=== PATIENT | male | born 1960 | race Caucasian/White ===

== ENCOUNTER → 2016-11-21 | Outpatient (CLI) | payer BC ==
[2016-11-21 12:12] LABS: Anisocytosis Slight; Basophils % (A) 1 %; CH 22.2; CHCM 28.6; Eosinophils % (A) 1 %; HCT 29.2 % (39.0-53.0); HDW 3.37; HGB 8.3 gm/dL (13.0-17.5); Hypochromasia Marked; Luc # (Auto) 0.19; Luc % (Auto) 4; Lymphocytes # (A) 1.4 k/uL (1.0-4.8); Lymphocytes % (A) 29 %; MCHC 28.3 g/dL (31.0-37.0); Mean Platelet Volume 6.2; Microcytosis Slight; Monocytes # (A) 0.4 k/uL (0-1.0); Monocytes % (A) 7 %; Neutrophils # (A) 2.8 k/uL (1.3-7.7); Neutrophils % (A) 58 %; RBC 3.75 m/uL (4.30-5.90); RDW 16.5 % (11.5-15.5); WBC 4.8 k/uL (3.8-10.6); WBC (Perox) 5.13
[2016-11-21 12:27] LABS: ALT 32 U/L (21-72); AST 28 U/L (17-59); Alkaline Phosphatase 69 U/L (38-126); Anion Gap 9 mmol/L; Blood Urea Nitrogen 7 mg/dL (9-20); Calcium 9.4 mg/dL (8.4-10.2); Carbon Dioxide 26 mmol/L (22-30); Chloride 106 mmol/L (98-107); Cholesterol 122 mg/dL (<200); Glucose 93 mg/dL (74-99); HDL Cholesterol 52 mg/dL (40-60); Non-African American GFR(MDRD) >60 (>60 ml/min/1.73 sqM); Potassium 4.3 mmol/L (3.5-5.1); Sodium 141 mmol/L (137-145); Total Bilirubin 0.5 mg/dL (0.2-1.3); Total Protein 7.2 g/dL (6.3-8.2); Triglycerides 82 mg/dL (<150)
[2016-11-21 13:06] LABS: Vitamin B12 819 pg/mL (239-931)
== END | disposition home or self-care (01) ==
LOC: LABWHC1 11:10
PROVIDERS: ATTEND Internal Medicine
DX: Z00.00 Encounter for general adult medical examination without abnormal findings (principal); Z12.5 Encounter for screening for malignant neoplasm of prostate
CPT/HCPCS: 80061; 80053; 84443; 82607; 85025; 82306; 36415; G0103

== ENCOUNTER → 2017-03-07 | Outpatient (CLI) | payer BC ==
--- NOTE | 2017-03-07 11:12 | MR ---
EXAMINATION TYPE: MR lumbar spine wo/w con DATE OF EXAM: 03/07/2017 COMPARISON: NONE HISTORY: 56-year-old male back pain, Lumbago. Flatback syndrome. Surgery 10 years ago. Technique: Multiplanar, multisequence images of the lumbar spine were obtained before and after admin istration of 20 mL intravenous MultiHance gadolinium contrast. FINDINGS: There is loss of the normal lumbar lordosis compatible with the provided history of flat back syndrom e. There is no vertebral compression collapse or lumbar ankylosis. There are postsurgical changes at L5-S1 with right-sided transpedicular screw fixation as well as int erbody fusion. There is a large left-sided laminotomy defect. Vertebral body heights are preserved. Alignment is grossly maintained. There may be minimal grade 1 a nterolisthesis at L5-S1. No suspicious bone marrow replacement. Conus medullaris is normal. From T12 through L3 levels, no spinal canal or neuroforaminal stenosis. At L3-L4, there is mild facet degenerative change with minimal disc bulge causing minimal bilateral i nferior neuroforaminal narrowing. No spinal canal stenosis. At L4-L5, there is mild diffuse disc bulge and facet degenerative change, particularly on the right. This causes mild left greater than right neuroforaminal stenosis. A tiny enhancing left paracentral a nnular fissure is present which closely approaches the traversing left L5 nerve root, sagittal image 4. No spinal canal stenosis. At L5-S1, diffuse level, there is low T1 signal within the surgerized left neuroforamen that shows po stcontrast enhancement, sagittal image 2 and axial T1 images 4 and 5. There is additional low T1 sign al extending into the posterior aspect of the right neuroforamen that shows associated postcontrast e nhancement contributing to moderate neural foraminal narrowing. Refer to T1 sagittal images 10 and 11 . No spinal canal stenosis. No prevertebral or paravertebral soft tissue abnormality seen. IMPRESSION: 1. Large left-sided laminotomy defect at L5-S1. Prior unilateral right posterior L5-S1 fusion as well as interbody fusion. 2. At this level, there is prominent enhancing perineural granulation tissue involving the exiting le ft L5 nerve root. 3. There is also enhancing epidural granulation tissue which extends into the posterior aspect of the right L5-S1 neuroforamen moderately narrowing the right neuroforamen. 4. Very mild diffuse disc bulge at L4-L5 with a tiny left paracentral annular fissure which closely a pproaches the traversing left L5 nerve root. 5. Straightening of the normal lumbar lordosis. No canal compromise.
== END | disposition home or self-care (01) ==
LOC: RADMRIMAIN 09:10
PROVIDERS: ATTEND Psychiatry & Neurology Neurology
DX: M99.73 Connective tissue and disc stenosis of intervertebral foramina of lumbar region (principal); M51.26 Other intervertebral disc displacement, lumbar region; Z98.1 Arthrodesis status
CPT/HCPCS: 72158; A9577

== ENCOUNTER → 2017-04-23 | Outpatient (CLI) | payer BC ==
[2017-04-23 12:05] VITALS: BP 126/86; PULSE 94; RESP 16
--- NOTE | 2017-04-23 12:59 | P.CONS ---
History of Present Illness - Reason for Consult Consult date: 04/23/17 - History of Present Illness This is the initial consultation visit for this 56 years old male, with a chronic history of severe low back pain with radiation to the posterior aspect of his left lower extremity, pain is constant and increases with any activity and he reports he feels some weakness in his left foot, he had the lumbar laminectomy surgery done 10 years ago, which helped him for several years but over the last 3 years he started having severe low back pain and increases in intensity over time, the pain intensity increased with any activity and interfere with his quality of life and his ability to function , he tried Neurontin and Lyrica and he had side effect/diplopia, and he stops using it and he is currently using Celebrex and Flexeril, with minimal benefit, he tried physical therapy without any significant benefit, and he was referred to [facility] for surgical consultation, but he is not interested in having any surgical interventions, he denies any fever or night sweats he denies any change in the bowel movement or urination Past Medical History Additional Past Medical History / Comment(s): Anemia RT gastric ulcer secondary to NSAIDS. History of Any Multi-Drug Resistant Organisms: None Reported Past Surgical History: Back Surgery Additional Past Surgical History / Comment(s): "Lumbar fusion 10 years ago." "Vasectomy 17 years ago." Past Anesthesia/Blood Transfusion Reactions: No Reported Reaction Past Psychological History: No Psychological Hx Reported Smoking Status: Never smoker Past Alcohol Use History: Rare Past Drug Use History: None Reported - Past Family History Father Family Medical History: Diabetes Mellitus Additional Family Medical History / Comment(s): "Father as a result of complications of diabetes." Mother Family Medical History: Diabetes Mellitus Medications and Allergies Home Medications Medication Instructions Recorded Confirmed Type Celecoxib [CeleBREX] 200 mg PO BID 04/23/17 04/23/17 History Cyclobenzaprine [Flexeril] 10 mg PO DAILY PRN 04/23/17 04/23/17 History Ibuprofen [Motrin] 800 mg PO DAILY PRN 04/23/17 04/23/17 History Allergies Allergy/AdvReac Type Severity Reaction Status Date / Time No Known Allergies Allergy Verified 04/23/17 11:51 Physical Exam Vitals: Vital Signs Pulse Resp BP Pulse Ox 04/23/17 11:53 94 16 126/86 96 Social history : not smoker , NO ETOH , NO Illegal drugs use Review of Systems : 1- Constitutional : no chills , no fever , no night sweats , 2- Ears : no ear discharge , no change in hearing 3-Nose, Mouth ,Throat ; no bleeding gums, no sore throat , no epistaxis , 4-Cardiovascular : Denies chest pain, , no orthopnea , no palpitation 5-Respiratory : Denies cough , no dyspnea , no hemoptysis 6-Gastrointestinal :, no change in bowel habits , no coffee- ground emesis . 7-Genitourinary : No hematuria , no discharge , no incontinence, 8-Musculoskeletal : No gait dysfunction , report low back pain , 9- Neurological : no ataxia , no tremor , no sezure , 10-Psychatric , no suicidal ideation no hallucination 11- Endocrine : no cold intolerence , no polyuria , no polydypsia , 12-Hematologic : no easy bleeding , no easy brusing , 13-Allergic / immunology : no angioedema , no wheezing ,no allergic rhinitis 14-Integumentary : no brttle nails , no change hair / nails , no foot/leg ulcers . Physical Examinations : 1-Constitutional : Cooperative , not in acute distress . 2-HEENT : nech ; supple , no Lymphadenopathy , no Thyromegaly , 3-Integumentary : No cellulitis , no ulcers , normal skin turgor , no cyanotic . 4- neurologic : Cranial nerve II to XII intact , no focal neurological deffecit 5-psychatric : alert , oriented X 3 , appropriate affect , intact judgment and insight . 6-Lymphatic : no Lymphadenopathy. 7- musculoskeltal: normal gait Lumber spine moter stegnth lower extremities ,thigh and legs 5/5 Right side , 4/5 Left side deep tendon reflexes : normal Knee Jerk , normal ankle Jerk positive lumber facet Loading Test Range of motion of the lumbar spine Flexion 30 degrees, extension 10 degrees strait leg raising test , positive at 30 degree left side , negative on the right side Fabere test negative RT and positive LT . Results Comments: MRI of the lumbar spine done at [facility] 03/07/2017 showed left-sided laminectomy defect at L5-S1 there is pain free in neurology granulation tissue involving the left L5 nerve root and there is moderate narrowing of the neuroforamina there is mild diffuse disc bulging at L4 5 and there is facet joint degeneration at L3 4 and L4-L5 Assessment and Plan Plan: Assessment and plan= chronic low back pain secondary to , lumbar spondylosis with lumbar facet arthropathy , failed back surgery syndrome lumbar area Patient should continue his current medication Celebrex 200 mg twice a day, Flexeril 10 mg daily at bedtime He could benefit from Cymbalta 30 mg daily and increase gradually to 60 mg daily, patient tried amitriptyline in the past without any benefit, and he tried Lyrica and Neurontin he had side effects, patient could benefit from caudal epidural steroid injections with lysis of epidural adhesions which will be done under fluoroscopy guidance in the next few weeks procedure risk and benefits and alternative discussed with the patient ,and he agreed with the preceding , Time with Patient: Greater than 30
== END | disposition home or self-care (01) ==
LOC: PNWHC3 11:47
PROVIDERS: ATTEND Specialist
DX: M47.816 Spondylosis without myelopathy or radiculopathy, lumbar region (principal); M46.96 Unspecified inflammatory spondylopathy, lumbar region; M96.1 Postlaminectomy syndrome, not elsewhere classified; Z79.1 Long term (current) use of non-steroidal anti-inflammatories (NSAID); Z79.899 Other long term (current) drug therapy
CPT/HCPCS: 99211

== ENCOUNTER 2017-04-30 10:39 | Day surgery (SDC) | payer BC ==
[2017-04-28 15:19] VITALS: BMI 26.5
[~2017-04-30 10:39] MED LIST: LACTATED RINGERS 1,000 ML IV SCH
[2017-04-30 10:54] VITALS: TEMP 98.3
[2017-04-30] MEDS ORDERED: LACTATED RINGERS 1,000 ML IV ONE ×2 (10:56→12:08)
--- NOTE | 2017-04-30 11:59 | P.PCN ---
Date of Procedure: 04/30/17 Procedure(s) Performed: PREOP DIAGNOSIS: 1- Lumbar postlaminectomy syndrome POSTOP DIAGNOSIS:1- Lumbar postlaminectomy syndrome PROCEDURE: Caudal epidural steroid injection with epidurolysis and epidurogram under fluoroscopic guidance ANESTHESIA: Local with 1% lidocaine 3 ml ; IV sedation with Versed 4 mg and fentanyl 100 g EBL: Minimal. PROCEDURE INDICATION: The patient with post-laminectomy syndrome with low back pain and radiculopathy radiating down in both legs, here for a caudal epidural steroid injection with epidurolysis. PROCEDURE DESCRIPTION: The patient was seen and identified in the preoperative area. Risks, benefits, complications, and alternatives were discussed with the patient. The patient agreed to proceed with the procedure and signed the consent. IV was started, and vital signs were stable. Patient was taken to the OR and time out was completed. The patient was placed in the prone position on procedure table and a pillow was placed under the abdomen to reduce lumbar lordosis. The lumbosacral area was prepped and draped in the usual sterile fashion. Vital signs were closely monitored during the procedure. lateral view and the anterior-posterior plates of the sacrum were identified with infiltration of the area overlying the sacral hiatus with 1% lidocaine .A 17 gauge RK epidural needle was used to advance through the sacral hiatus into the caudal epidural space. Omnipaque 180 dye. 2cc was injected and the position of the needle was verified to be in the midline. A Racz catheter was introduced into the epidural space and was advanced towards the L5-S1 interspace under direct fluoroscopic guidance. Multiple passes were made with the catheter for lysis of epidural adhesions.then 20 mg dexamethasone mixed with 5 ml of preservative free Lidocaine 1% and 5 ml of preservative free normal saline was injected slowly. Additional spread was seen to L4 under fluoroscopy. The needle and the catheter were withdrawn intact. EPIDUROGRAM: Omnipaque 180 mg dye 2 ml was injected with spread of the dye into the caudal epidural space and with spread cutoff at L5 prior to epidurolysis. Post epidurolysis dye 2 ml was injected and spread was seen to L3- 4.There was further spread of the solution together with the dye above the L3 COMPLICATIONS: None. DISPOSITION / PLANS: The patient was placed in a supine position and transferred to the recovery area in a stable condition for observation and was discharged from the recovery room after meeting discharge criteria. Home discharge instructions given to the patient by the staff. The patient was reexamined prior to discharge. The patient will schedule a follow up in the clinic in 2-4 weeks.
[2017-04-30 12:10] VITALS: RESP 16
--- NOTE | 2017-04-30 12:16 | FL ---
EXAMINATION TYPE: FL guided pain mgmt statistic DATE OF EXAM: 04/30/2017 COMPARISON: NONE HISTORY: Caudal injection TECHNIQUE: Fluoroscopy. FINDINGS/IMPRESSION: Fluoroscopic guidance was provided during procedure performed by Dr. Fuchs. A total of 4 seconds of fluoroscopic time was utilized during the procedure and 2 spot images was ac quired.
[2017-04-30 12:41] VITALS: BP 127/82; PULSE 73
== END 2017-04-30 13:16 | disposition home or self-care (01) ==
LOC: ORPAIN 10:39
PROVIDERS: ATTEND Specialist
DX: G89.29 Other chronic pain (principal); M96.1 Postlaminectomy syndrome, not elsewhere classified; Z79.899 Other long term (current) drug therapy; Z79.1 Long term (current) use of non-steroidal anti-inflammatories (NSAID)
CPT/HCPCS: 99152; 62264; J2250; J1100; J3010; C1894

== ENCOUNTER → 2018-06-22 | Outpatient (CLI) | payer BC ==
[2018-06-22 16:53] LABS: Basophils % (A) 0 %; Eosinophils # (A) 0.1 k/uL (0-0.7); Eosinophils % (A) 2 %; HCT 31.9 % (39.0-53.0); HGB 10.3 gm/dL (13.0-17.5); Hypochromasia Slight; Lymphocytes # (A) 1.6 k/uL (1.0-4.8); Lymphocytes % (A) 27 %; MCH 29.3 pg (25.0-35.0); MCHC 32.3 g/dL (31.0-37.0); MCV 90.4 fL (80.0-100.0); Mean Platelet Volume 6.6; Monocytes # (A) 0.4 k/uL (0-1.0); Monocytes % (A) 7 %; Neutrophils # (A) 3.7 k/uL (1.3-7.7); Neutrophils % (A) 62 %; Platelet Count 347 k/uL (150-450); Poikilocytosis Slight; RBC 3.52 m/uL (4.30-5.90); RDW 13.8 % (11.5-15.5)
== END ==
LOC: LABWHC1 16:35
PROVIDERS: ATTEND Otolaryngology
DX: D64.9 Anemia, unspecified (principal)
CPT/HCPCS: 36415; 85025; 86141

== ENCOUNTER → 2023-08-08 | Outpatient (CLI) | payer MEDICARE ==
[2023-08-08 23:02] LABS: Basophils # (A) 0.04 X 10*3/uL (0.00-0.10); Basophils % (A) 0.8 %; Eosinophils # (A) 0.37 X 10*3/uL (0.04-0.35); Eosinophils % (A) 7.1 %; HCT 42.3 % (39.6-50.0); HGB 14.5 g/dL (13.0-17.0); Lymphocytes # (A) 1.91 X 10*3/uL (0.90-5.00); Lymphocytes % (A) 36.8 %; MCHC 34.3 g/dL (32.0-37.0); MCV 93.4 FL (80.0-97.0); Mean Platelet Volume 10.3 FL (9.5-12.2); Monocytes # (A) 0.55 X 10*3/uL (0.20-1.00); Monocytes % (A) 10.6 %; NRBC Per 100 WBC 0 X 10*3/uL (0.00-0.01); Neutrophils # (A) 2.31 X 10*3/uL (1.80-7.70); Neutrophils % (A) 44.5 %; Platelet Count 185 X 10*3/uL (140-440); RBC 4.53 X 10*6/uL (4.40-5.60); WBC 5.19 X 10*3/uL (4.50-10.00)
[2023-08-08 23:29] LABS: % Iron Saturation 25.97 (15.00-50.00); ALT 17 U/L (10-49); AST 24 U/L (14-35); Albumin 4.5 g/dL (3.8-4.9); Albumin/Globulin Ratio 2.25 Ratio (1.60-3.17); Alkaline Phosphatase 80 U/L (41-126); BUN/Creat Ratio 13.75 Ratio (12.00-20.00); Calcium 9.6 mg/dL (8.7-10.3); Carbon Dioxide 25.4 mmol/L (21.6-31.8); Chloride 103 mmol/L (96-109); Chol/HDL Ratio 2.41 Ratio; Ferritin 46.4 ng/mL (22.0-322.0); Glucose 87 mg/dL (70-110); Iron 87 UG/DL (65-175); LDL Cholesterol,Calculated 65.1 mg/dL (0.0-131.0); Potassium 4.6 mmol/L (3.5-5.5); Prostate Specific Antigen 0.26 ng/mL (0.000-4.500); Sodium 139 mmol/L (135-145); Total Bilirubin 0.5 mg/dL (0.3-1.2); Total Iron Binding Capacity 335 UG/DL (228-460); Total Protein 6.5 g/dL (6.2-8.2)
== END | disposition home or self-care (01) ==
LOC: LABWHC1 11:17
PROVIDERS: ATTEND Internal Medicine
DX: Z00.00 Encounter for general adult medical examination without abnormal findings (principal); Z11.59 Encounter for screening for other viral diseases; Z12.5 Encounter for screening for malignant neoplasm of prostate; Z78.9 Other specified health status
CPT/HCPCS: 36415; 80053; 80061; 82306; 82607; 82728; 82746; 83036; 83540; 83550; 84153; 84443; 85025; 86803